=== PATIENT | male | born 1995 | race Caucasian/White ===

== ENCOUNTER 2017-09-13 22:12 | Emergency (ER) | payer OTHER, BC ==
[~2017-09-13] VITALS: Ht 165.1 cm; Wt 87.3 kg
[~2017-09-13 22:12] MED LIST: IBUP-1050 PO
[2017-09-13 22:18] VITALS: TEMP 36.9; Ht 165.1 cm; Wt 87.3 kg
[2017-09-13] MEDS ORDERED: GELATIN SPONGE 12-7MM EXT STA (22:27)
--- NOTE | 2017-09-13 23:02 | EMERGENCY ROOM VISIT NOTE ---
ED Visit Note First contact with patient: 22:20 Chief Complaint: "Cut finger-right index finger" History of Present Illness: This patient is a 22-year-old male who presents to the Emergency Department via private vehicle for evaluation of their right index finger laceration. Patient sustained the laceration while operating a door of a refrigerated room when he notes that this caught his finger on the ventral aspect and avulsed a piece of skin. They report a minimal amount of bleeding initially. They admit to minimal numbness into the distal extremity. They report no decreased range of motion of the affected digit. Patient rates his current discomfort as a 0/10. Patient's Tetanus status is currently up-to- date according to patient. Medications: As noted below Allergies: None PMH: No pertinent SHx: Patient is employed and lives locally. ROS: All pertinent positive and negative review of systems are appropriately documented in the History of Present Illness. Physical Exam: VITAL SIGNS - Vital signs and nursing notes were reviewed. Stable. Afebrile. GENERAL -22-year-old male appearing his stated age who is in no acute distress. Communicates well with provider and answers questions appropriately. SKIN - There is a 0.5 cm by 1 cm skin avulsion from the volar aspect of the patient's right distal second digit just proximal to the DIP joint. The edges do not gape apart with traction. No foreign bodies appreciated. Upon further examination there are no deep structures including vessel, tendon, or bony structures appreciated. There is no active bleeding noted. It appears that the skin has been avulsed from this region and there is no repairable laceration. The skin edges cannot be approximated. MUSCULOSKELETAL - Laceration as described above. +5/5 strength appreciated of the affected digit. Full range of motion of the affected digit. NEUROLOGIC -patient is neurovascularly intact distally. VASCULAR -excellent vascular status in the right second digit distally. ED Course: Patient was seen and evaluated by myself. Risks and benefits of performing primary wound closure versus no repair were discussed with the patient who verbalizes understanding. Verbal consent was obtained prior to performing the procedure. The wound is more of an avulsion as are no longer his skin in this region and is down just through the dermis but does not involve any tendons, ligaments or bony structures. Full range of motion noted. He is neurovascularly intact. I do not believe that suturing at this time would be reasonable as the skin edges cannot be approximated as the skin is no longer present. The wound was cleansed and prepped in the typical sterile fashion utilizing normal saline and Betadine. The wound was sterilely draped. Once proper anesthetization was established, the wound was further examined and demonstrated no deep involvement. The wound was copiously irrigated with normal saline and Be covered with gauze. A metal splint was applied to the finger for comfort. Patient educated on worrisome symptoms for return visit to the Emergency Department. Patient discharged to home in good condition. Because this is a work-related injury he is to follow-up with Worker's Comp. He is return with any worsening symptoms. Current/Historical Medications Scheduled Ibuprofen (Advil), 400 MG PO PRN UD Allergies Coded Allergies: No Known Allergies (Unverified , 09/13/17) Vital Signs Date Time Temp Pulse Resp B/P (MAP) Pulse Ox O2 Delivery O2 Flow Rate FiO2 09/13/17 23:08 80 18 132/81 98 09/13/17 22:18 36.9 82 18 143/81 98 Room Air Medications Administered Medications (Trade) Dose Ordered Sig/Lan Route Start Time Stop Time Status Last Admin Dose Admin Gelatin (Surgifoam Sponge 12-7MM (SMALL)) 1 ea NOW STAT EXT 09/13/17 22:27 09/13/17 22:29 DC 09/13/17 22:55 1 EA Departure Information Impression Primary Impression: Avulsion of skin of index finger Dispostion Home / Self-Care Condition GOOD Referrals No Doctor, Assigned (PCP) Patient Instructions My [facility] Additional Instructions You have been treated in the Emergency Department today for your finger skin Avulsion. Leave the GELFOAM and dressing in place for the next 48 hours. Keep the dressing clean and dry until time for removal. To remove the GELFOAM dressing, remove the overlying tape and then soak the wound in warm water until the piece of GELFOAM can be easily removed. Proper wound care is essential for adequate wound healing and infection prevention. You can shower and clean the wound with soap and water. Do not scour over the wound, pat dry with a towel. You can use an antibiotic ointment with a dressing/bandage over the wound for the next 3-4 days. After this time you may leave the wound dry and open to the air. Look for signs of infection of the wound including: increased pain, swelling, foul discharge, streaking, or increased temperature. If any of these are noticed you should return to the Emergency Department for further assessment and treatment. As with any laceration you may have received nerve damage to the surrounding tissues. This damage could be permanent. Because this was a work-related injury I do recommend following up with the employer to identify if they would like you to follow-up with Workmen's Comp. For pain control, you can use the following [id number] medicines (if >12 yo): - Regular strength (325mg/tab) Tylenol (acetaminophen) 2 tabs every 4-6 hours as needed. Do not exceed 12 tablets in a 24 hour period. Avoid taking more than 3grams (3000 mg) of Tylenol per day. This includes any other sources of acetaminophen you may take on a regular basis. - Regular strength (200 mg/tab) Advil (ibuprofen) 1-2 tabs every 4-6 hours as needed. Do not exceed a dose of 3200 mg per day. Return to the emergency department if your symptoms worsen despite treatment course outlined above.
[2017-09-13 23:08] VITALS: BP 132/81; PULSE 80; O2SAT 98
== END 2017-09-13 23:09 | disposition home or self-care (01) ==
LOC: C.EDB 22:13 → C.EDC 23:09
DX: S61.210A Laceration without foreign body of right index finger without damage to nail, initial encounter (principal); W23.0XXA Caught, crushed, jammed, or pinched between moving objects, initial encounter